=== PATIENT | female | born 1955 | race Two or more races ===

== ENCOUNTER 2021-04-13 14:49 | Emergency (ER) | payer OTHER ==
[~2021-04-13] VITALS: Ht 162.6 cm; Wt 71.3 kg
[2021-04-13 15:26] VITALS: BP 130/65
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
== END 2021-04-13 18:26 | disposition home or self-care (01) ==
LOC: ER 14:49
DX: S13.9XXA Sprain of joints and ligaments of unspecified parts of neck, initial encounter (principal); Z88.0 Allergy status to penicillin; V89.2XXA Person injured in unspecified motor-vehicle accident, traffic, initial encounter; Y93.89 Activity, other specified; Y92.89 Other specified places as the place of occurrence of the external cause; Y99.8 Other external cause status
CPT/HCPCS: 72125; 99284